=== PATIENT | female | born 1955 | race Caucasian/White ===

== ENCOUNTER 2017-10-31 13:09 | Emergency (ER) | payer BC, OTHER ==
[~2017-10-31] VITALS: Ht 165.1 cm; Wt 80.9 kg
[~2017-10-31 13:09] MED LIST: CETI-194; GLYB5TAB7 PO; LANS15CA10 PO; MAGN300C PO; METF500T PO; UBID100C16 PO; VITA200C68 PO
[2017-10-31 15:56] LABS: BASOPHILS # (AUTO) 0.1 X10'3 (0-0.2); BASOPHILS % (AUTO) 0.7 % (0-1); EOSINOPHILS % (AUTO) 0 % (0-6); HEMATOCRIT 36.2 % (35.0-45.0); HEMOGLOBIN 12.6 g/dl (12.0-16.0); LYMPHOCYTES % (AUTO) 33.7 % (21-51); MEAN CORPUSCULAR HEMOGLOBIN 28.8 PG (27.0-31.0); MEAN CORPUSCULAR HGB CONC 34.9 % (33.0-36.5); MEAN CORPUSCULAR VOLUME 82.5 FL (78-98); MEAN PLATELET VOLUME 7.4 FL (7.4-10.4); MONOCYTES # (AUTO) 0.6 X10'3 (0-0.9); MONOCYTES % (AUTO) 6.7 % (2-12); NEUTROPHILS # (AUTO) 5.3 X10'3 (1.8-7.7); NEUTROPHILS % (AUTO) 58.9 % (42-75); PLATELET COUNT 405 X10'3 (140-440); RED BLOOD COUNT 4.38 X10'6 (4.20-5.60); RED CELL DISTRIBUTION WIDTH 15.1 % (11.5-14.5)
[2017-10-31] MEDS ORDERED: iohexol 300mg/ml 100ml inj. ONE (16:10)
[2017-10-31 16:12] LABS: ALANINE AMINOTRANSFERASE 32 U/L (12-78); ALBUMIN 3.5 G/DL (3.4-5.0); ALBUMIN/GLOBULIN RATIO 0.9 (1.1-1.5); ALKALINE PHOSPHATASE 99 IU/L (46-116); ANION GAP 10 (8-16); ASPARTATE AMINO TRANSFERASE 18 U/L (10-37); BILIRUBIN,TOTAL 0.5 MG/DL (0.1-1.0); BLOOD UREA NITROGEN 12 MG/DL (7-18); BUN/CREATININE RATIO 13.2 (6.6-38.0); CALCIUM 8.7 MG/DL (8.5-10.1); CHLORIDE 102 MMOL/L (99-107); CREATININE 0.91 MG/DL (0.40-0.90); GLUCOSE 325 MG/DL (70-104); LIPASE 847 U/L (73-393); POTASSIUM 3.7 MMOL/L (3.5-5.1); SODIUM 138 MMOL/L (135-145); TOTAL CARBON DIOXIDE 26.5 MMOL/L (24-32); TOTAL PROTEIN 7.4 G/DL (6.4-8.2); eGFR 63 ML/MIN
[2017-10-31 17:40] VITALS: BP 124/74
== END 2017-10-31 17:42 | disposition home or self-care (01) ==
LOC: ER 13:10
DX: R10.10 Upper abdominal pain, unspecified (principal); R10.13 Epigastric pain; E11.9 Type 2 diabetes mellitus without complications; Z88.0 Allergy status to penicillin; Z88.2 Allergy status to sulfonamides; Z79.899 Other long term (current) drug therapy; V87.7XXA Person injured in collision between other specified motor vehicles (traffic), initial encounter; Y93.89 Activity, other specified; Y92.89 Other specified places as the place of occurrence of the external cause; Y99.8 Other external cause status
CPT/HCPCS: 36415; 74177; 80053; 83690; 85025; 99285; J7030; Q9967

== ENCOUNTER 2019-06-02 14:16 | Emergency (ER) | payer BC ==
[~2019-06-02] VITALS: Ht 162.6 cm; Wt 82.0 kg
[~2019-06-02 14:16] MED LIST changes: +CLIN-90 PO
[2019-06-02] MEDS ORDERED: metoprolol tartrate 50mg tablet PO ONE (14:45)
[2019-06-02] MEDS: metoprolol tartrate 1mg/ml inj IV SCH ×2 (15:00→15:24)
[2019-06-02 15:05] LABS: BASOPHILS # (AUTO) 0.1 X10'3 (0-0.2); BASOPHILS % (AUTO) 0.9 % (0-1); EOSINOPHILS # (AUTO) 0.2 X10'3 (0-0.9); EOSINOPHILS % (AUTO) 1.7 % (0-6); HEMATOCRIT 37.3 % (35.0-45.0); HEMOGLOBIN 13.3 g/dl (12.0-16.0); LYMPHOCYTES # (AUTO) 2.4 X10'3 (1.1-4.8); LYMPHOCYTES % (AUTO) 26.3 % (21-51); MEAN CORPUSCULAR HEMOGLOBIN 29.5 PG (27.0-31.0); MEAN CORPUSCULAR HGB CONC 35.6 g/dL (33.0-36.5); MEAN CORPUSCULAR VOLUME 82.8 FL (78-98); MEAN PLATELET VOLUME 8.5 FL (7.4-10.4); MONOCYTES # (AUTO) 0.5 X10'3 (0-0.9); NEUTROPHILS % (AUTO) 65.1 % (42-75); PLATELET COUNT 296 X10'3 (140-440); RED CELL DISTRIBUTION WIDTH 14.1 % (11.5-14.5); WHITE BLOOD COUNT 9.2 X10'3 (4.5-11.0)
[2019-06-02 15:23] LABS: ALANINE AMINOTRANSFERASE 30 U/L (12-78); ALBUMIN 3.5 G/DL (3.4-5.0); ALKALINE PHOSPHATASE 99 IU/L (46-116); ASPARTATE AMINO TRANSFERASE 18 U/L (10-37); BILIRUBIN,TOTAL 0.4 MG/DL (0.1-1.0); BLOOD UREA NITROGEN 11 MG/DL (7-18); BUN/CREATININE RATIO 16.4 (6.6-38.0); CALCIUM 8.7 MG/DL (8.5-10.1); CHLORIDE 107 MMOL/L (99-107); CREATININE 0.67 MG/DL (0.40-0.90); GLUCOSE 175 MG/DL (70-104); POTASSIUM 3.9 MMOL/L (3.5-5.1); TOTAL CARBON DIOXIDE 25.6 MMOL/L (24-32); eGFR 89 ML/MIN
[2019-06-02 15:25] VITALS: BP 151/74
[2019-06-02] MEDS ORDERED: ATEN-169 PO (15:38)
[2019-06-03 16:59] LABS: ANION GAP 10 (8-16); SODIUM 143 MMOL/L (135-145)
== END 2019-06-02 16:07 | disposition home or self-care (01) ==
LOC: ER 14:17
DX: I10 Essential (primary) hypertension (principal); G89.29 Other chronic pain; M54.2 Cervicalgia; E11.9 Type 2 diabetes mellitus without complications; F10.99 Alcohol use, unspecified with unspecified alcohol-induced disorder; Z88.0 Allergy status to penicillin; Z88.2 Allergy status to sulfonamides; Z79.84 Long term (current) use of oral hypoglycemic drugs; Z79.899 Other long term (current) drug therapy; Y90.9 Presence of alcohol in blood, level not specified
CPT/HCPCS: 36415; 71045; 80053; 84484; 85025; 93005; 99284; J3490

== ENCOUNTER 2023-06-03 16:52 | Emergency (ER) | payer BC, MEDICARE ==
[~2023-06-03] VITALS: Ht 170.2 cm; Wt 81.8 kg
[~2023-06-03 16:52] MED LIST changes: -CLIN-90 PO; +CLIN-97 PO; -LANS15CA10 PO; +LANS15CA14 PO
[2023-06-03 17:28] VITALS: BP 179/62; PULSE 87; RESP 18; TEMP 97.8; O2SAT 99
[2023-06-03] MEDS ORDERED: cyclobenzaprine 10mg tablet PO ONE (17:35)
== END 2023-06-03 20:29 | disposition home or self-care (01) ==
LOC: ER 16:52
DX: S30.0XXA Contusion of lower back and pelvis, initial encounter (principal); S80.02XA Contusion of left knee, initial encounter; S50.02XA Contusion of left elbow, initial encounter; W18.39XA Other fall on same level, initial encounter; Y93.89 Activity, other specified; Y92.89 Other specified places as the place of occurrence of the external cause; Y99.8 Other external cause status
CPT/HCPCS: 72040; 72070; 72100; 73564; 99284

== ENCOUNTER 2025-04-20 14:20 | Outpatient (CLI) | payer MEDICARE ==
[~2025-04-20 14:20] MED LIST changes: +CLIN-224 PO; -CLIN-97 PO; -UBID100C16 PO; +UBID100C51 PO; +diatr meglu/diatrizoate 30ml oral sol.-(3 dose) bottle ONE
--- NOTE | 2025-04-20 18:48 | RADIOLOGY REPORT ---
EXAM: CT CT HEAD INDICATION: DIZZINESS AND GIDDINESS TECHNIQUE: CT of the head without intravenous contrast. Radiation Dose Information: CT Dose: CTDI volume is 60.3 mGy. Dose-length product is 1047.7 mGy*cm The dose indicators for CT are the volume Computed Tomography (CT) Dose Index (CTDIvol) and the Dose Length Product (DLP), and are measured in units of mGy and mGy-cm, respectively. These indicators are not patient dose, but values generated from the CT scanner acquisition factors. The report includes radiation exposure data for exposures received during this examination. COMPARISON: None FINDINGS: Motion artifact degrades fine detail. No acute territorial infarct, intracranial hemorrhage, or mass effect. There are global involutional changes with compensatory prominence of the ventricles and sulci. Patchy periventricular and subcortical white matter hypoattenuation is nonspecific but may be related to small vessel ischemic disease. The orbits are normal. The paranasal sinuses and mastoid air cells are clear. The osseous structures are unremarkable. IMPRESSION: 1. No acute territorial infarct, intracranial hemorrhage, or mass effect. 2. Age-related involutional changes. Chronic microvascular changes. 3. If clinical symptoms persist, MRI may be beneficial in further evaluation.
== END 2025-04-20 23:59 | disposition home or self-care (01) ==
LOC: RAD 14:20
PROVIDERS: ATTEND General Practice
DX: I67.89 Other cerebrovascular disease (principal); R42 Dizziness and giddiness
CPT/HCPCS: 70450; Q9963